=== PATIENT | female | born 1945 | race Caucasian/White ===

== ENCOUNTER 2018-01-20 19:28 | Inpatient (IN) | payer OTHER, BC ==
[~2018-01-20] VITALS: Ht 166.4 cm; Wt 69.0 kg
[2018-01-20 20:03] LABS: BASOPHIL % 1.3 % (0-2); RED CELL DISTRIBUTION WIDTH 12.8 % (11.5-14.5)
[2018-01-20 20:07] LABS: CALCIUM 9.6 mg/dL (8.5-10.1); CARBON DIOXIDE 26.7 mmol/L (21-32); CHLORIDE SERUM 99 mmol/L (98-107); CREATININE SERUM 0.7 mg/dL (0.6-1.0); GLUCOSE SERUM 164 mg/dL (74-106); POTASSIUM SERUM 3.1 mmol/L (3.5-5.1); SODIUM SERUM 138 mmol/L (136-145)
[2018-01-20] MEDS ORDERED: METFORMIN HYD1000 M2 PO (20:07)
[2018-01-20] MEDS ORDERED: AMLODIPINE BESY1 CA6 PO (20:08)
[2018-01-20] MEDS ORDERED: ASPIR 8181 MG PO (20:08)
[2018-01-20] MEDS ORDERED: LOVASTATIN40 MG PO (20:08)
[2018-01-20 20:09] LABS: PLATELET COUNT 491 x10^3mcL (130-400)
[2018-01-20] MEDS ORDERED: HYDROCHLOROTHIA25 MG PO (20:09)
[2018-01-20 20:13] LABS: ALBUMIN 4.4 g/dL (3.4-5.0); ALKALINE PHOSPHATASE 60 U/L (46-116); ALT/SGPT 38 U/L (14-59); AST/SGOT 22 U/L (15-37); BILIRUBIN TOTAL 0.41 mg/dL (0.20-1.00); LIPASE 102 IU/L (73-393); TOTAL PROTEIN, SERUM 7.5 g/dL (6.4-8.2)
[2018-01-20 21:32] VITALS: BP 147/78
[2018-01-20 21:34] LABS: CHOLESTEROL/HDL RATIO 2.6; MAGNESIUM 1.4 mg/dL (1.8-2.4); PHOSPHOROUS 3.8 mg/dL (2.5-4.9)
[2018-01-20 21:43] LABS: FREE T4 0.96 ng/dL (0.76-1.46); FREE THYROXINE INDEX 2.8 ug/dL (1.4-4.5); T4(THYROXINE) 8.5 ug/dL (4.7-13.3)
[2018-01-20 22:09] LABS: T3 TOTAL 0.93 ng/mL
[2018-01-21 01:29] VITALS: BP 140/76
[2018-01-21 05:52] VITALS: BP 125/69
[2018-01-21 07:52] LABS: BASOPHIL % 0.5 % (0-2); RED CELL DISTRIBUTION WIDTH 13.3 % (11.5-14.5)
[2018-01-21 08:12] LABS: PLATELET COUNT 439 x10^3mcL (130-400)
[2018-01-21 08:30] LABS: CALCIUM 8.6 mg/dL (8.5-10.1); CARBON DIOXIDE 25.6 mmol/L (21-32); CHLORIDE SERUM 106 mmol/L (98-107); CREATININE SERUM 0.5 mg/dL (0.6-1.0); GLUCOSE SERUM 176 mg/dL (74-106); MAGNESIUM 1.5 mg/dL (1.8-2.4); PHOSPHOROUS 3.5 mg/dL (2.5-4.9); POTASSIUM SERUM 3.5 mmol/L (3.5-5.1); SODIUM SERUM 139 mmol/L (136-145)
[2018-01-21 10:56] LABS: microscopic required? NO
[2018-01-21 11:02] LABS: UA SPECIFIC GRAVITY 1.025 (1.005-1.035); urine erythrocyte NEGATIVE (NEGATIVE)
[2018-01-21 14:54] VITALS: BP 125/60
[2018-01-21 17:59] VITALS: BP 141/73
[2018-01-21 20:36] VITALS: BP 124/73
[2018-01-22 01:00] VITALS: BP 128/74
[2018-01-22 05:48] VITALS: BP 124/68
[2018-01-22 05:59] LABS: CALCIUM 8.8 mg/dL (8.5-10.1); CHLORIDE SERUM 102 mmol/L (98-107); CREATININE SERUM 0.5 mg/dL (0.6-1.0); GLUCOSE SERUM 146 mg/dL (74-106); POTASSIUM SERUM 3.6 mmol/L (3.5-5.1); SODIUM SERUM 137 mmol/L (136-145)
[2018-01-22 06:14] LABS: BASOPHIL % 0.4 % (0-2); RED CELL DISTRIBUTION WIDTH 13.3 % (11.5-14.5)
[2018-01-22 06:52] LABS: PLATELET COUNT 438 x10^3mcL (130-400)
[2018-01-22 08:24] VITALS: BP 124/68
[2018-01-22 08:58] VITALS: BP 152/77
== END 2018-01-22 10:10 | disposition home or self-care (01) | DRG 205 ==
LOC: ED 19:28 → DU 20:27
PROVIDERS: Emergency Medicine; Family Medicine
DX: M94.0 Chondrocostal junction syndrome [Tietze] (principal); N17.0 Acute kidney failure with tubular necrosis; K21.9 Gastro-esophageal reflux disease without esophagitis; I10 Essential (primary) hypertension; E78.5 Hyperlipidemia, unspecified; E87.6 Hypokalemia; F17.210 Nicotine dependence, cigarettes, uncomplicated; E11.65 Type 2 diabetes mellitus with hyperglycemia; E83.42 Hypomagnesemia; D64.9 Anemia, unspecified; E11.51 Type 2 diabetes mellitus with diabetic peripheral angiopathy without gangrene; E66.9 Obesity, unspecified; I25.10 Atherosclerotic heart disease of native coronary artery without angina pectoris; D47.3 Essential (hemorrhagic) thrombocythemia; E02 Subclinical iodine-deficiency hypothyroidism; Z90.49 Acquired absence of other specified parts of digestive tract; Z90.81 Acquired absence of spleen; Z85.07 Personal history of malignant neoplasm of pancreas; Z90.411 Acquired partial absence of pancreas; Z79.899 Other long term (current) drug therapy; Z79.82 Long term (current) use of aspirin
CPT/HCPCS: 82962; 83880; 84439; J1815; J7030; J7040; Q0092

== ENCOUNTER → 2019-07-18 | Outpatient (CLI) | payer OTHER, BC ==
[~2019-07-18] MED LIST: AMLODIPINE BESY1 CA6 PO; ASPIR 8181 MG PO; HYDROCHLOROTHIA25 MG PO; LOVASTATIN40 MG PO; METFORMIN HYD1000 M2 PO
== END | disposition home or self-care (01) ==
LOC: MA 08:29
PROC: BH02ZZZ Plain Radiography of Bilateral Breasts (ICD-10-PCS; principal; 2019-07-18)
DX: Z12.31 Encounter for screening mammogram for malignant neoplasm of breast (principal)
CPT/HCPCS: 77067

== ENCOUNTER → 2019-08-07 | Outpatient (CLI) | payer OTHER, BC | END | disposition home or self-care (01) | LOC: MA 08:26 | PROC: BH00ZZZ Plain Radiography of Right Breast (ICD-10-PCS; principal; 2019-08-07) | PROC: BH40ZZZ Ultrasonography of Right Breast (ICD-10-PCS; 2019-08-07) | DX: R92.8 Other abnormal and inconclusive findings on diagnostic imaging of breast (principal) | CPT/HCPCS: 76642; 77065 ==